=== PATIENT | female | born 1990 | race Caucasian/White ===

== ENCOUNTER 2016-05-29 08:31 | Emergency (ER) | payer BC, MEDICAID ==
[2016-05-29 09:02] VITALS: BP 131/80; PULSE 100; RESP 16; TEMP 98.3; O2SAT 96
--- NOTE | 2016-05-29 09:02 | UCPHY ---
H & P Time Seen by Provider: 05/29/16 08:55 Patient Type: New HPI/ROS: HPI Fever, sore throat, body aches. 25-year-old female by private vehicle. She reports that she had a fever last night. She developed a sore throat yesterday evening with body aches. She is able to flex swallow solids and liquids. She has more pain in her throat with this. No voice changes. No difficulty breathing. Denies cough. Denies ill contacts. ROS: Constitutional: No fever, no chills. No weakness. Eyes: No discharge. No changes in vision. ENT: As above. No nasal congestion or rhinorrhea. Respiratory: No cough. No shortness of breath. Cardiac: No chest pain, no palpitations. Gastrointestinal: No abdominal pain, no vomiting, no diarrhea. Genitourinary: No hematuria. No dysuria or increased frequency with urination. Musculoskeletal: As above. Skin: No rashes. Neurological: No headache. No focal weakness or altered sensation. Past medical history: Asthma. Social history: Here by herself. Nonsmoker. Physical Exam: General Appearance: Alert, no distress. This patient is responding to questions appropriately and in full sentences. This patient appears well- hydrated and well-nourished. Eyes: Pupils equal and round no pallor or injection. No lid edema, erythema or injection. ENT, Mouth: Mucous membranes are moist. Diffuse, pharyngeal erythema. No edema or swelling. No asymmetry suggestive of abscess. No exudates. No voice changes. No stridor. No stridor on auscultation of her neck. Respiratory: There are no retractions, lungs are clear to auscultation with good air movement bilaterally. Cardiovascular: Regular rate and rhythm. No murmur. Neurological: Motor sensory function is grossly intact. Cranial nerves are normal. Gait is normal. Skin: Warm and dry, no rashes. Musculoskeletal: Neck is supple and nontender. Mild anterior upper cervical lymphadenopathy. Extremities are symmetrical. All joints range without pain or impingement. Psychiatric: No agitation. No depression. Database: Rapid strep-positive. Influenza-negative. EKG: Imaging: Procedures: Emergency department course: Patient given 600 mg of ibuprofen after my evaluation. She is driving. We will evaluate her for strep pharyngitis as well as influenza. Vital signs have been reviewed. 9:05 a.m., patient re-evaluated. Resting comfortably at this time. Results of rapid strep discussed. Diagnosis of streptococcal pharyngitis discussed. She is allergic to penicillins. She apparently had a rash when she had amoxicillin years ago. She will get a prescription for azithromycin as well as dosing instructions on ibuprofen and a limited prescription of Vicodin. She is in agreement with this plan. She feels comfortable going home. Follow-up was discussed. Return to urgent care discussed. All of her questions were answered. She was discharged in good condition. Differential Diagnosis: The differential diagnosis on this patient includes but is not limited to streptococcal pharyngitis, viral pharyngitis, influenza, viral syndrome. Retropharyngeal abscess, peritonsillar abscess, tracheitis, epiglottitis unlikely. This represents a partial list of diagnoses considered. These considerations are based on history, physical exam, past history, reassessment and diagnostic testing. Constitutional: Initial Vital Signs Temperature (C) 36.8 C 05/29/16 08:57 Heart Rate 100 05/29/16 08:57 Respiratory Rate 16 05/29/16 08:57 Blood Pressure 131/80 H 05/29/16 08:57 O2 Sat (%) 96 05/29/16 08:57 O2 Delivery Mode Room Air Allergies/Adverse Reactions: amoxicillin Allergy (Verified 05/29/16 09:02) metoclopramide HCl [From Reglan] Allergy (Verified 05/29/16 09:02) prochlorperazine [From Compazine] Allergy (Verified 05/29/16 09:02) prochlorperazine edisylate [From Compazine] Allergy (Verified 05/29/16 09:02) prochlorperazine maleate [From Compazine] Allergy (Verified 05/29/16 09:02) Home Medications: Medication Instructions Recorded Advair Hfa 45-21 Mcg Inhaler 05/29/16 Albuterol 05/29/16 Azithromycin [Zithromax] 250 mg PO DAILY #6 tab 05/29/16 Hydrocodone/APAP 5/325 [[place] 1 - 2 tab PO Q4-6PRN PRN #10 tab 05/29/16 5/325 (*)] Medical Decision Making - Data Points Laboratory Results: 05/29/16 08:55 Influenza Typ A,B (DFA) NEGATIVE FOR FLU (NEGATIVE) Group A Strep Screen POSITIVE H (NEGATIVE) Departure - Departure Disposition: Home, Routine, Self-Care Clinical Impression: Strep pharyngitis Condition: Good Instructions: Strep Throat (ED) Additional Instructions: Read and follow provided instructions. Ibuprofen dosin mg every 6 hours with meals for the next 3 days only. [place]/Percocet dosin-2 every 4-[address] for [address] not drive on this medication. Follow-up with your primary care physician in 1-2 days for re-evaluation. Take medication as prescribed. Return to the emergency department for worsening symptoms, worsening throat pain , difficulty swallowing, voice changes, high fever or other serious concerns. Referrals: [place],. [Primary Care Provider] - As per Instructions Prescriptions: Hydrocodone/APAP 5/325 [[place] 5/325 (*)] 1 - 2 tab PO Q4-6PRN PRN #10 tab PRN Reason: Pain, Moderate Azithromycin [Zithromax] 250 mg PO DAILY #6 tab - PQRS PQRS Measurement: Not applicable.
[2016-05-29] MEDS ORDERED: IBUPROFEN 800 MG TAB PO ONE (09:09)
[2016-05-29] MEDS ORDERED: IBUPROFEN 200 MG TAB PO ONE (09:35)
[2016-05-29] MEDS ORDERED: IBUPROFEN 600 MG TAB PO ONE (09:35)
== END 2016-05-29 09:44 | disposition home or self-care (01) ==
LOC: CED 08:31
DX: J02.0 Streptococcal pharyngitis (principal); J45.909 Unspecified asthma, uncomplicated
CPT/HCPCS: 87400-PO; 87880-PO; 99203-PO; G0463-PO